=== PATIENT | male | born 1990 | race Hispanic/Latino ===

== ENCOUNTER 2017-07-07 08:19 | Emergency (ER) | payer SELFPAY | END 2017-07-07 10:48 | disposition home or self-care (01) | LOC: ERS 08:19 | DX: J06.9 Acute upper respiratory infection, unspecified (principal); F17.210 Nicotine dependence, cigarettes, uncomplicated | CPT/HCPCS: 99406 ==

== ENCOUNTER 2017-11-26 18:01 | Emergency (ER) | payer SELFPAY ==
[2017-11-26] MEDS ORDERED: Lidocaine 1% PF 5 ML VIAL ONE (18:43)
[2017-11-26] MEDS ORDERED: cefTRIAXone\\ROCEPHIN 250 MG VIAL ONE (18:43)
[2017-11-26] MEDS ORDERED: Azithromycin 250 MG TAB ONE (18:43)
[2017-11-26 18:57] LABS: Bilirubin Small (Negative); Blood, Urine Moderate (Negative); Clarity CLEAR (Clear); Glucose, Urine (Dipstick) Negative (Negative); Leukocyte Negative (Negative); Nitrite Negative (Negative); Protein, Urine (Dipstick) Negative (Neg-Trace); Specific Gravity, Urine 1.027 (1.002-1.036)
[2017-11-26 19:01] LABS: Bacteria/HPF None Seen HPF (None Seen); Hyaline Casts/LPF 7-10 HYALINE CAST LPF (0-3 Hyaline)
[2017-11-26 19:13] LABS: Crystals/HPF None Seen HPF (Negative); Oval Fat Bodies/HPF None Seen HPF (None Seen); Renal Epithelial 0-3 HPF (0-3); Transitional Epithelial 0-3 HPF (0-3); Trichomonas/HPF None Seen HPF (None Seen)
== END 2017-11-26 19:37 | disposition home or self-care (01) ==
LOC: ERS 18:01
DX: N34.2 Other urethritis (principal); F17.210 Nicotine dependence, cigarettes, uncomplicated
CPT/HCPCS: 81003; 81015; 87086; 87491; 87591; 96372; J0696; J2001

== ENCOUNTER 2017-12-19 11:33 | Emergency (ER) | payer SELFPAY ==
--- NOTE | 2017-12-19 12:37 | RAD ---
LEFT ANKLE RADIOGRAPHS THREE VIEWS: Date: 12-19-17 Provided Clinical History: Left ankle pain status post injury. FINDINGS: There is no evidence for fracture or other acute osseous abnormality. If there is persistent clinical concern, conservative management and follow up imaging are advised. IMPRESSION: As above. POS: INDY
--- NOTE | 2017-12-19 12:38 | RAD ---
LEFT FOOT RADIOGRAPHS THREE VIEWS: Date: 12-19-17 Provided Clinical History: Left foot pain status post injury. FINDINGS: There is no evidence for fracture or other acute osseous abnormality. If there is persistent clinical concern, conservative management and follow up imaging are advised. IMPRESSION: As above. POS: INDY
--- NOTE | 2017-12-19 12:39 | RAD ---
LEFT FORELEG RADIOGRAPHS TWO VIEWS: Date: 12-19-17 Provided Clinical History: Left leg pain status post injury. FINDINGS: There is no evidence for fracture or other acute osseous abnormality. If there is persistent clinical concern, conservative management and follow up imaging are advised. IMPRESSION: As above. POS: INDY
== END 2017-12-19 15:18 | disposition home or self-care (01) ==
LOC: ERS 11:33
DX: S93.402A Sprain of unspecified ligament of left ankle, initial encounter (principal); S80.12XA Contusion of left lower leg, initial encounter; F17.210 Nicotine dependence, cigarettes, uncomplicated; W11.XXXA Fall on and from ladder, initial encounter